=== PATIENT | female | born 1965 | race Two or more races ===

== ENCOUNTER 2022-09-19 12:36 | Emergency (ER) | payer OTHER ==
[~2022-09-19] VITALS: Ht 167.6 cm; Wt 96.1 kg
[2022-09-19] MEDS ORDERED: DEXA2TA PO (12:56)
[2022-09-19] MEDS ORDERED: GABA-1171 PO (12:56)
[2022-09-19] MEDS ORDERED: FAMO20TA PO (12:56)
[2022-09-19] MEDS ORDERED: NAPR-885 PO (12:56)
[2022-09-19] MEDS ORDERED: LABE100T71 PO (12:56)
[2022-09-19] MEDS ORDERED: METOCLOPRAMIDE INJ 10MG/2ML VIAL IV ONE (13:15)
[2022-09-19] MEDS ORDERED: NS 1,000 ML IV SCH (13:15)
[2022-09-19 13:37] LABS: HEMATOCRIT 36.9 % (36.0-47.0); HEMOGLOBIN 12.4 g/dl (12.0-15.5); LYMPH # 0.6 10^3/uL (1.5-5.0); LYMPH % 26.2 % (24.0-44.0); MEAN CORPUSCULAR HEMOGLOBIN 31.5 pg (27.0-33.0); MEAN CORPUSCULAR HGB CONC 33.6 g/dl (32.0-36.5); MEAN CORPUSCULAR VOLUME 93.7 fl (80.0-96.0); MONO # 0.4 10^3/uL (0.0-0.8); NEUTROPHILS # 1.4 10^3/uL (1.5-8.5); NEUTROPHILS % 57.4 % (36.0-66.0); PLATELET COUNT, AUTOMATED 130 10^3/uL (150-450); RED BLOOD COUNT 3.94 10^6/uL (4.00-5.40); WHITE BLOOD COUNT 2.4 10^3/uL (4.0-10.0)
[2022-09-19 13:59] LABS: BLOOD UREA NITROGEN 17 MG/DL (9-23); CALCIUM LEVEL 10.1 MG/DL (8.5-10.1); CARBON DIOXIDE LEVEL 27 MMOL/L (20-31); CHLORIDE LEVEL 107 MMOL/L (98-107); CREATININE FOR GFR 0.69 MG/DL (0.55-1.30); GLOMERULAR FILTRATION RATE > 60.0 (>51); GLUCOSE, FASTING 110 MG/DL (60-100); POTASSIUM SERUM 4.1 MMOL/L (3.5-5.1); SODIUM LEVEL 141 MMOL/L (136-145)
[2022-09-19 14:00] VITALS: BP 172/86
== END 2022-09-19 14:40 | disposition home or self-care (01) ==
LOC: M ED 12:36
DX: R51.9 Headache, unspecified (principal); I10 Essential (primary) hypertension; C50.919 Malignant neoplasm of unspecified site of unspecified female breast; Z79.899 Other long term (current) drug therapy
CPT/HCPCS: 70450; 80048; 84484; 85025; 93005; 93041; 94760; 96374; 99284; J2765